=== PATIENT | female | born 1955 | race Caucasian/White ===

== ENCOUNTER → 2017-01-18 | Outpatient (CLI) | payer MEDICARE, MEDICAID ==
--- NOTE | 2017-01-18 12:20 | RADIOLOGY REPORT (SQ) ---
EXAM DESCRIPTION: CT ABDOMEN NO ORAL OR IV COMPLETED DATE/TIME: 01/18/2017 11:31 am REASON FOR STUDY: UNSPEC ABD PAIN G50.0 TRIGEMINAL NEURALGIA R10.9 UNSPECIFIED ABDOMINAL PAIN COMPARISON: None. TECHNIQUE: CT scan of the abdomen performed without intravenous contrast and without oral contrast. Images reviewed with lung, soft tissue, and bone windows. Reconstructed coronal and sagittal MPR im ages reviewed. All images stored on PACS. All CT scanners at this facility use dose modulation, iterative reconstruction, and/or weight based d osing when appropriate to reduce radiation dose to as low as reasonably achievable (ALARA). [facility]: Dose Right [facility]: CareDose [facility]: Dose Right [facility]: Teradose 4D [facility]: YaBattle RADIATION DOSE: mGy. LIMITATIONS: None. FINDINGS: LOWER CHEST: No significant findings. No nodules or infiltrates. NONCONTRASTED LIVER, SPLEEN, ADRENALS: Evaluation limited by lack of IV contrast. No identified sign ificant masses. PANCREAS: No masses. No peripancreatic inflammatory changes. GALLBLADDER: Surgically absent. RIGHT KIDNEY AND URETER: No suspicious masses. Assessment limited by lack of IV contrast. Very tiny peripheral calcifications. No hydronephrosis or hydroureter. LEFT KIDNEY AND URETER: No suspicious masses. Assessment limited by lack of IV contrast. Very tiny peripheral calcifications. No hydronephrosis or hydroureter. AORTA AND RETROPERITONEUM: No aneurysm. No retroperitoneal masses or adenopathy. BOWEL AND PERITONEAL CAVITY: No obvious masses or inflammatory changes. No free fluid. APPENDIX: Not visualized. ABDOMINAL WALL: No abdominal wall hernias. BONES: No significant findings. OTHER: No other significant finding. IMPRESSION: NO SIGNIFICANT OR ACUTE ABDOMINAL PROCESS. TECHNICAL DOCUMENTATION: JOB ID: [id number] Quality ID # [id number]: Final reports with documentation of one or more dose reduction techniques (e.g., Au tomated exposure control, adjustment of the mA and/or kV according to patient size, use of iterative reconstruction technique) 2010 [employer]- All Rights Reserved
--- NOTE | 2017-01-18 13:07 | RADIOLOGY REPORT (SQ) ---
EXAM DESCRIPTION: MRI TEMPOROMANDIBULAR JOINTS COMPLETED DATE/TIME: 01/18/2017 12:42 pm REASON FOR STUDY: TRIGEMINAL NEURALGIA (G50.0) G50.0 TRIGEMINAL NEURALGIA R10.9 UNSPECIFIED ABDOMI NAL PAIN COMPARISON: None. TECHNIQUE: Sagittal T1 weighted images were obtained with the jaw in open and closed positions. Cor onal PD images were obtained as well. Stenting images performed. LIMITATIONS: None. FINDINGS: Right TMJ: No significant spurs. The meniscus appears intact. Normal opening and closin g without dislocation of the meniscus. Left TMJ: No significant spurs. Meniscus appears intact. Normal opening and closing without disloc ation or translation. IMPRESSION: NORMAL TEMPOROMANDIBULAR JOINTS. TECHNICAL DOCUMENTATION: JOB ID: [id number] [employer]- All Rights Reserved
== END ==
LOC: RAD 11:01
PROVIDERS: ATTEND Specialist
DX: G50.0 Trigeminal neuralgia (principal); R10.9 Unspecified abdominal pain
CPT/HCPCS: 70336; 74150